=== PATIENT | male | born 1980 | race Caucasian/White ===

== ENCOUNTER 2022-06-18 14:13 | Outpatient (CLI) | payer OTHER, SELFPAY ==
[2022-06-18 21:51] LABS: Albumin* 4.8 g/dL (3.3-5.0)
[2022-06-18 21:52] LABS: Chloride* 102 mmol/L (96-114); Potassium* 4.7 mmol/L (3.6-5.1); Sodium* 137 mmol/L (135-149)
[2022-06-18 21:54] LABS: Aspartate Amino Transferase* 42 U/L (12-35); Bilirubin Total* 1.3 mg/dL (0.1-1.5); Carbon Dioxide* 26 mmol/L (20-32); Cholesterol* 233 mg/dL (90-199); Creatinine* 1.1 mg/dL (0.5-1.5); Estimated Glomerular Filt Rate 85 ml/min; Total Protein* 7.3 g/dL (6.0-8.3)
[2022-06-18 21:55] LABS: Alanine Aminotransferase* 51 U/L (4-50); Alkaline Phosphatase* 81 U/L (40-150); Blood Urea Nitrogen* 16 mg/dL (5-24); Calcium* 9.5 mg/dL (8.4-10.6); Glucose* 99 mg/dL (60-115); HDL Cholesterol* 39 mg/dL (>=40); LDL Cholesterol Calculated 165 mg/dL (<100); Triglycerides* 145 mg/dL (40-149)
[2022-06-18 22:08] LABS: Vitamin D 25 Hydroxy* 37 ng/mL (30-80)
[2022-06-18 22:39] LABS: Hepatitis C Virus Antibody* Negative (Negative)
== END 2022-06-18 14:14 | disposition home or self-care (01) ==
PROVIDERS: PCP Family Medicine; Visit Provider Family Medicine
DX: Z00.00 Encounter for general adult medical examination without abnormal findings (principal); E78.5 Hyperlipidemia, unspecified; E55.9 Vitamin D deficiency, unspecified; F41.9 Anxiety disorder, unspecified
CPT/HCPCS: 80053; 80061; 82306; 86803

== ENCOUNTER 2023-10-31 07:34 | Outpatient (CLI) | payer OTHER, SELFPAY ==
[2023-10-31 20:51] LABS: Chlamydia DNA Amplified* Not Detected (No Detected); GC DNA Amplified* Not Detected (No Detected)
== END 2023-10-31 07:35 | disposition home or self-care (01) ==
PROVIDERS: PCP Family Medicine; Visit Provider Family Medicine
DX: Z11.3 Encounter for screening for infections with a predominantly sexual mode of transmission (principal); Z13.220 Encounter for screening for lipoid disorders; Z13.228 Encounter for screening for other metabolic disorders
CPT/HCPCS: 80053; 80061; 82306; 86592; 86703; 86803; 87491; 87591

== ENCOUNTER 2024-02-02 15:56 | Outpatient (CLI) | payer OTHER, SELFPAY | END 2024-02-02 15:57 | disposition home or self-care (01) | LOC: NFLDREF 02-03 05:23 | PROVIDERS: PCP Family Medicine; Referring Provider Family Medicine; Visit Provider Family Medicine | DX: E55.9 Vitamin D deficiency, unspecified (principal) | CPT/HCPCS: 82306 ==

== ENCOUNTER 2024-12-06 09:56 | Outpatient (CLI) | payer OTHER, SELFPAY ==
[2024-12-06 16:19] LABS: Chlamydia DNA Amplified* NOT DETECTED (No Detected); GC DNA Amplified* NOT DETECTED (No Detected)
== END 2024-12-06 09:57 | disposition home or self-care (01) ==
PROVIDERS: PCP Family Medicine; Visit Provider Family Medicine
DX: E55.9 Vitamin D deficiency, unspecified (principal); E78.5 Hyperlipidemia, unspecified; F41.9 Anxiety disorder, unspecified; Z12.5 Encounter for screening for malignant neoplasm of prostate; Z13.6 Encounter for screening for cardiovascular disorders; Z13.1 Encounter for screening for diabetes mellitus; Z11.3 Encounter for screening for infections with a predominantly sexual mode of transmission; Z11.59 Encounter for screening for other viral diseases
CPT/HCPCS: 80053; 80061; 82306; 86592; 86703; 86803; 87491; 87591; G0103

== ENCOUNTER 2025-01-09 07:30 | Outpatient (RCR) | payer OTHER, SELFPAY ==
--- NOTE | 2024-12-12 14:58 | OT.OPOE ---
OT Outpatient Ortho Eval OT Outpatient Ortho Eval* Start: 12/12/24 12:47 Freq: Status: Active Protocol: Document 12/12/24 12:51 CAESAR (Rec: 12/12/24 14:55 CAESAR [id number]) E-signed By Henrietta Mishra, OTR/L, CLT OT OP Ortho Eval Details Complexity Complexity Medium Insurance Information Insurance Information [facility] Outpatient History/Precautions Current Condition/Medical Diagnosis Referring Provider Dr. Hoda Olivares Medical Diagnoses Elbow pain, M25.529 Treatment Diagnosis S46.211A-Strain of muscle, fascia and tendon of other parts of biceps, right arm Date of Onset 4 months ago Other Conditions Elbow pain (Acute) M25.529 - Pain in unspecified elbow (ICD-10) Vaping nicotine dependence, non-tobacco product (Acute) F17.200 - Nicotine dependence, unspecified, uncomplicated ( ICD-10) Vitamin D deficiency (Acute) E55.9 - Vitamin D deficiency, unspecified (ICD-10) Dyslipidemia (Acute) E78.5 - Hyperlipidemia, unspecified (ICD-10) Anxiety (Acute) VERY sparing use of lorazepam, refilled 10 tabs Oct 2024 F41.9 - Anxiety disorder, unspecified (ICD-10) Medical/Functional History Medical History Reviewed Yes Prior Level of Function/Mobility Pt. has an hour drive to and from work to get to [place] . Has a son in 8th Grade Patient Indep with all ADLs/ IADLs Social History Employment Status [employer] Employed Current Occupation [employer] No formal fitness routine Ortho Subjective Subjective Subjective 44 year old male patient saw his PCP on 12/06/24 and was referred to skilled OT for chronic elbow pain. Patient had no imaging for this diagnosis and was not seen by ORTHO. He has a history of vitamin D deficiency and elevated blood pressure, both of which are currently under control. He has been experiencing R elbow (bicep) pain for the past 4 months, which he attributes to an incident involving his dog ( strain/over stretch to the R arm). The pain is localized to the biceps tendon (proximal) and intensifies when lifting or carrying objects. Despite the passage of time, there has been no improvement in his condition. 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 Pain Assessment Pain Pain Yes Pain Comments R (bicep) proximal elbow ( dominant UE) 5/10 pain level Hand Pinch/Lift Driver Strength Hand Pinch/Lift Driver Strength Hand Pinch/Lift Driver Strength Left Hand,Right Hand Left Hand Lift Driver Strength Position 1 in Elbow 109 Flexion (lbs) Lift Driver Strength Position 2 in Elbow 111 Extension (lbs) Lateral Pinch Strength (lbs) 22 Three Point Pinch (lbs) 23 Right Hand Lift Driver Strength Position 1 in Elbow 119 Flexion (lbs) Lift Driver Strength Position 2 in Elbow 125 Extension (lbs) Lateral Pinch Strength (lbs) 26 Three Point Pinch (lbs) 28 OT Problems Problems Problems Pain,Lifting,Gripping Problems Comments Pain with carrying objects ( over 3-4 lbs with the R UE) Patient Potential Good Assessment Assessment Assessment 44 year old male patient saw his PCP on 12/06/24 and was referred to skilled OT for chronic elbow pain. Patient had no imaging for this diagnosis and was not seen by ORTHO. He has a history of vitamin D deficiency and elevated blood pressure, both of which are currently under control. He has been experiencing R elbow (bicep) pain for the past 4 months, which he attributes to an incident involving his dog ( strain/over stretch to the R arm). The pain is localized to the biceps tendon (proximal) and intensifies when lifting or carrying objects. Despite the passage of time, there has been no improvement in his condition. 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 Reports no numbness/tingling/change in sensation of the R UE. No pain at rest. PLAN: treat R UE like a biceps tendon strain with use of modalities as needed for pain, establish a customized HEP starting with [employer], patient education on activity modifications/ice cup protocol. Occupational Therapy Treatment Plan - OP Potential Rehabilitation Potential Good Barriers Barriers to goal attainment None noted Set Goals Goals Set with Patient Yes Goals Goals 1. Patient will verbalize 3 activity modifications to decrease abusive/overloading of the muscles, joints & tendons. 2. In 8 weeks, pt will demonstrate: 1) Decreased pain to <2/10 80% of the time with sustained gripping & carrying tasks. 3. From EVAL raw score on The Disabilities of the Arm, Shoulder and Hand (DASH) patient will have a decreased score by >9 points in order to show significant change in UE function to better her ADL, IADL, work and leisure performance. Treatment Plan Treatment Plan Evaluation,Edema Control, Iontophoresis,Joint Mobilization,Manual Therapy, Ultrasound,Therapeutic Exercise,Self Care/Home Management,Education Expected Frequency 1-2x Week Expected Duration 12 weeks Certification Certification Statement I Certify That: Therapy Services Provided, Therapy Plan Established, Therapy Plan Reviewed Certification Information Clinic ID # [id number] Initial Certification Date 12/12/24 Recertification Due Date 03/12/25 Provider Signature Required Yes Provider Signature Shows Agreement With POC & Medical Necessity Physician NPI Number Write NPI# Here Physician Comment/Change Comment or Changes Physician Signature & Date Requested Please Sign/Date Here
== END 2025-04-04 09:46 | disposition home or self-care (01) ==
PROVIDERS: PCP Family Medicine; Visit Provider Family Medicine
DX: M25.521 Pain in right elbow (principal); S46.211D Strain of muscle, fascia and tendon of other parts of biceps, right arm, subsequent encounter; Z51.89 Encounter for other specified aftercare
CPT/HCPCS: 97035; 97110; 97140; 97166; X5282